=== PATIENT | male | born 1995 ===

== ENCOUNTER 2021-03-29 09:30 | Emergency (ER) | payer SELFPAY ==
--- NOTE | 2021-03-29 10:13 | XRay Report ---
CHEST 2 VIEWS INDICATION / CLINICAL INFORMATION: Chest pain. COMPARISON: None available. FINDINGS: SUPPORT DEVICES: None. HEART / MEDIASTINUM: No significant abnormality. LUNGS / PLEURA: No significant pulmonary abnormality. No significant pleural effusion. No pneumothora x. ADDITIONAL FINDINGS: No significant additional findings. IMPRESSION: 1. No acute abnormality of the chest. Signer Name: Marshal Prescott MD Signed: 03/29/2021 10:08 AM Workstation Name: [id number]
[2021-03-29] MEDS ORDERED: HYDROcodone/ACETAMINOPHEN 5-325 MG TAB PO ONE (14:33)
[2021-03-29] MEDS ORDERED: ASPIRIN 325 MG TAB PO ONE (14:33)
--- NOTE | 2021-03-29 14:33 | Emergency Department Report ---
<SHELLIE EASTMAN S - Last Filed: 03/29/21 15:24> ED Chest Pain HPI - General Chief Complaint: Neuro Symptoms/Deficit Stated Complaint: CHES PAIN/LEFT SHOULDER NUMBNESS Time Seen by Provider: 03/29/21 14:28 - Related Data Previous Rx's Medication Instructions Recorded Last Taken Type Amlodipine Besylate [Norvasc] 5 mg PO DAILY #30 tablet 03/29/21 Unknown Rx Allergies Allergy/AdvReac Type Severity Reaction Status Date / Time No Known Allergies Allergy Unverified 03/29/21 09:33 ED Past Medical Hx - Medications Home Medications: Home Medications Medication Instructions Recorded Confirmed Last Taken Type Amlodipine Besylate [Norvasc] 5 mg PO DAILY #30 tablet 03/29/21 Unknown Rx ED Medical Decision Making - Lab Data Result diagrams: 03/29/21 14:14 03/29/21 14:14 - Medical Decision Making I saw this patient in conjunction with ALEXANDRA Rodriguez. Patient presents with a 2- week history of some left-sided chest pain, intermittent left arm pain, and some distal left upper extremity "numbness" that sounds more like paresthesias. On examination the patient does not have any focal, motor or sensory deficits and cranial nerves are intact. He has an NIH stroke scale of 0. Patient had an EKG that did not show any morphology consistent with ST elevation myocardial infarction arrhythmia. Chest x-ray does not show any pneumonia, pleural effusions, pneumothorax, widened mediastinum, or any other acute process. Patient's labs have been unremarkable including CBC, metabolic panel and a negative troponin. He is low on the heart and AMARJIT score. For all these reasons the patient appears safe for discharge home at this time. He will be set up for the outpatient low risk chest pain protocol. ED Disposition Clinical Impression: Nonspecific chest pain, Paresthesia of left arm, Hypertension Disposition: 01 HOME / SELF CARE / HOMELESS Condition: Stable Instructions: Paresthesia, Nonspecific Chest Pain, Adult, Hypertension, Adult, [id number], Hypertension (ED) Additional Instructions: I recommend a take the Norvasc as prescribed. It is okay to take a baby aspirin daily. Your information will be faxed over to [facility] where you will be contacted for an appointment for evaluation by finance business partner and additional testing. I also recommend that you follow-up with the primary care doctor listed on your discharge instructions for continued monitoring of your high blood pressure. Return to the ER if your symptoms changes or worsens in any way. Prescriptions: Amlodipine Besylate [Norvasc] 5 mg PO DAILY #30 tablet Referrals: JASMYN FENG MD [Staff Physician] - 3-5 Days [facility] [Provider Group] - 3-5 Days Forms: Work/School Release Form(ED) <LUCIAN HERNANDEZ - Last Filed: 03/29/21 16:17> ED Chest Pain HPI - General Source: patient Mode of arrival: Ambulatory Limitations: No Limitations - History of Present Illness Initial Comments: 26-year-old male presents to the ER today with complaints of left-sided chest pain. Patient states that he started with left-sided chest pain 2 weeks ago. He describes as a intermittent sharp achy pain. He states that he has been having difficulty catching his breath sometimes. He stated what concerned him the most was that today he started having pain in his left arm, and some numbness and tingling in his left hand and he felt a little dizzy. He is unable to describe any modifying factors for his chest pain or arm pain. He denies any injury to his chest or any injury to his arm or any strenuous activity. He denies any associated nausea, vomiting, focal arm weakness, numbness, vision changes, speech changes, facial weakness or any lower extremity swelling or calf pain. Patient states that he smokes marijuana and he drinks alcohol occasionally but otherwise he denies any illicit drug use and he denies any significant past medical history. He denies any family history of heart disease. Complaint: chest pain -: week(s) (2) Heart Score - HEART Score History: Slightly suspicious EKG: Normal Age: < 45 Risk factors: No known risk factors Troponin: < normal limit HEART Score: 0 - EKG Read Time Time EKG Completed: 09:48 EKG Read Time: 09:52 ED Review of Systems ROS: Stated complaint: CHES PAIN/LEFT SHOULDER NUMBNESS Other details as noted in HPI Comment: All other systems reviewed and negative Constitutional: denies: chills, fever Eyes: denies: eye pain, eye discharge, vision change ENT: denies: ear pain, throat pain Respiratory: other (Difficulty catching his breath). denies: cough, shortness of breath, SOB with exertion, SOB at rest, wheezing Cardiovascular: chest pain. denies: palpitations, dyspnea on exertion, edema, syncope, paroxysmal nocturnal dyspnea Endocrine: no symptoms reported Gastrointestinal: denies: abdominal pain, nausea, diarrhea, constipation, hematemesis, hematochezia Genitourinary: denies: urgency, dysuria, testicular pain, testicular mass Musculoskeletal: denies: back pain, joint swelling, arthralgia, myalgia Skin: denies: rash, lesions, change in color, change in hair/nails, pruritus Neurological: denies: headache, weakness, numbness, paresthesias, confusion, abnormal gait, vertigo Psychiatric: denies: anxiety, depression, auditory hallucinations, visual hallucinations, homicidal thoughts, suicidal thoughts Hematological/Lymphatic: denies: easy bleeding, easy bruising, swollen glands ED Past Medical Hx - Past Medical History Previous Medical History?: Yes Hx Hypertension: Yes - Surgical History Past Surgical History?: No ED Physical Exam - General Limitations: No Limitations General appearance: alert, in no apparent distress - Head Head exam: Present: atraumatic, normocephalic, normal inspection - Eye Eye exam: Present: normal appearance, PERRL, EOMI Pupils: Present: normal accommodation - ENT ENT exam: Present: normal exam, mucous membranes moist, TM's normal bilaterally - Neck Neck exam: Present: normal inspection, full ROM. Absent: meningismus - Respiratory Respiratory exam: Present: normal lung sounds bilaterally. Absent: respiratory distress, wheezes, rales, rhonchi - Cardiovascular Cardiovascular Exam: Present: regular rate, normal rhythm, normal heart sounds - Extremities Exam Extremities exam: Present: normal inspection, full ROM, normal capillary refill. Absent: pedal edema, calf tenderness - Expanded Upper Extremity Exam Right Shoulder Exam: Present: normal inspection, full ROM. Absent: tenderness Upper Arm exam: Present: normal inspection, full ROM. Absent: tenderness Elbow exam: Present: normal inspection, full ROM. Absent: tenderness, swelling Forearm Wrist exam: Present: normal inspection, full ROM. Absent: tenderness Hand Wrist exam: Present: normal inspection, full ROM. Absent: tenderness Neurosensory exam: Present: radial nerve intact, ulnar nerve intact, median nerve intact Vascular: Present: normal capillary refill. Absent: vascular compromise - Neurological Exam Neurological exam: Present: alert, oriented X3, CN II-XII intact, normal gait - Psychiatric Psychiatric exam: Present: normal affect, normal mood - Skin Skin exam: Present: intact ED Course Vital Signs 03/29/21 03/29/21 09:36 15:49 Temperature 99.1 F 98.0 F Pulse Rate 94 H 75 Respiratory 18 16 Rate Blood Pressure 173/116 Blood Pressure 149/100 [Right] O2 Sat by Pulse 97 99 Oximetry AMARJIT score - Amarjit Score Age > 65: (0) No Aspirin use within the Past 7 Days: (0) No 3 or more CAD Risk Factors: (0) No 2 or more Angina events in past 24 hrs: (0) No Known CAD with more than 50% Stenosis: (0) No Elevated Cardiac Markers: (0) No ST Deviation Greater than 0.5mm: (0) No AMARJIT Score: 0 ED Medical Decision Making - Lab Data Result diagrams: 03/29/21 14:14 03/29/21 14:14 - EKG Data EKG shows normal: sinus rhythm Rate: normal - EKG Data Interpretation: normal EKG - Radiology Data Radiology results: report reviewed Patient: BIRD ARCHULETA MR#: [id number] : 1995 Acct:[id number] Age/Sex: 26 / M ADM Date: 03/29/21 Loc: ED Attending Dr: Ordering Physician: BLAINE VELAZCO MD Date of Service: 03/29/21 Procedure(s): XR chest routine 2V Accession Number(s): [id number] cc: ED MD MORA Fluoro Time In Minutes: CHEST 2 VIEWS INDICATION / CLINICAL INFORMATION: Chest pain. COMPARISON: None available. FINDINGS: SUPPORT DEVICES: None. HEART / MEDIASTINUM: No significant abnormality. LUNGS / PLEURA: No significant pulmonary abnormality. No significant pleural effusion. No pneumothorax. ADDITIONAL FINDINGS: No significant additional findings. IMPRESSION: 1. No acute abnormality of the chest. Signer Name: Marshal Prescott MD Signed: 03/29/2021 10:08 AM Workstation Name: [id number] Transcribed By: AASHISH Dictated By: Marshal Prescott MD Electronically Authenticated By: Marshal Prescott MD Signed Date/Time: 03/29/21 1008 DD/ 1008 TD/TT: - Medical Decision Making 1610 All labs reviewed --CBC and CMP including troponin negative. EKG does not show acute STEMI, significant dysrhythmia or any other acute ischemic changes. Chest x-ray shows nothing acute. He has heart score of 0 and PERC score of 0. Patient is currently well-appearing, not toxic and not in any acute distress. He is awake alert oriented x3, he is neurologically intact with a normal gait. He is not in any significant pain distress or respiratory distress. His repeat vital signs shows improvement of his blood pressure but is still elevated, remaining vital signs are stable. Patient again denies any known history of hypertension. Discussed case with Dr Eastman, who also saw and evaluated patient. See his note for detail. At this time there is no indication for any additional testing, imaging, or admission. Patient's information will be faxed over to [facility] [place] for further outpatient evaluation and treatment. Patient will be started on low dose norvasc given his persistent elevation in his blood pressure during stay. Discussed all lab works including chest x-ray with patient. Very low suspicion for unstable angina, PE, aortic dissection, TIA or stroke or any other significant emergent conditions at this time. Informed patient that his information will be faxed over to the [facility] [place] will he will be contacted by cardiology office for further evaluation but at this time there is no indication for admission or any additional testing. Discussed treatment plan with patient. He will also be given referral to local primary care doctor for further monitoring of his high blood pressure. Patient expressed understanding of all instructions and agree with plan. Patient stable at time of discharge. Critical care attestation.: If time is entered above; I have spent that time in minutes in the direct care of this critically ill patient, excluding procedure time. ED Disposition Is pt being admited?: No Does the pt Need Aspirin: No Time of Disposition: 16:03
[2021-03-29 14:47] LABS: Basophils % (Auto) 0.3 % (0.0-1.8); Eosinophils # (Auto) 0.4 K/mm3 (0.0-0.4); Eosinophils % (Auto) 4.3 % (0.0-4.3); Hematocrit 47.6 % (35.5-45.6); Hemoglobin 15.8 gm/dl (11.8-15.2); Lymphocytes # (Auto) 3.2 K/mm3 (1.2-5.4); Lymphocytes % (Auto) 30.7 % (13.4-35.0); Mean Corpuscular HGB Conc 33 % (32-34); Mean Corpuscular Volume 85 fl (84-94); Monocytes # (Auto) 0.9 K/mm3 (0.0-0.8); Monocytes % (Auto) 8.4 % (0.0-7.3); Platelet Count 286 K/mm3 (140-440); Red Blood Count 5.58 M/mm3 (3.65-5.03)
[2021-03-29 15:08] LABS: Alanine Aminotransferase 110 units/L (7-56); Albumin 4.4 g/dL (3.9-5); Blood Urea Nitrogen 6 mg/dL (9-20); Hemolysis Index 14
[2021-03-29 15:43] LABS: BUN/Creatinine Ratio 9
[2021-03-29 15:50] VITALS: BP 149/100
--- NOTE | 2021-03-30 17:42 | Electrocardiograph Report ---
[facility] Test Date: 2021-03-29 Test Time: 09:48:53 Pat Name: BIRD YOU Department: Room: Gender: M [employer] Operator: MILTON : 1995 Requested By: ED DOC Order Number: [id number] Reading MD: Hilton Palencia Measurements Intervals [place] Rate: 78 P: 45 [place]: 132 QRS: 20 QRSD: 104 T: 17 QT: 369 QTc: 421 Interpretive Statements Sinus rhythm Normal ECG No previous ECG available for comparison Electronically Signed On 03-30-2021 17:41:53 EDT by Hilton Palencia
== END 2021-03-29 16:49 | disposition home or self-care (01) ==
LOC: ED 09:30
DX: R07.89 Other chest pain (principal); I10 Essential (primary) hypertension; R20.0 Anesthesia of skin; Z79.899 Other long term (current) drug therapy
CPT/HCPCS: 36415; 71046; 80053; 83690; 84484; 85025; 93005; 99284